=== PATIENT | female | born 1995 | race Two or more races ===

== ENCOUNTER 2022-06-22 18:54 | Emergency (ER) | payer OTHER ==
[~2022-06-22] VITALS: Ht 162.6 cm; Wt 86.4 kg
[2022-06-22] MEDS ORDERED: MULT-1203 PO (19:15)
[2022-06-22] MEDS ORDERED: BACLOFEN 10 MG TABLET PO ONE (19:30)
[2022-06-22] MEDS ORDERED: IBUPROFEN 600 MG TABLET PO ONE (19:30)
[2022-06-22] MEDS ORDERED: LIDOCAINE 5% TRANSDERMAL PATCH TD ONE (19:30)
[2022-06-22] MEDS ORDERED: IBUP-1492 PO (21:02)
[2022-06-22] MEDS ORDERED: BACL10TA PO (21:04)
[2022-06-22 21:17] VITALS: BP 125/76
== END 2022-06-22 21:17 | disposition home or self-care (01) ==
LOC: EMS 18:58
DX: M25.512 Pain in left shoulder (principal); V49.9XXA Car occupant (driver) (passenger) injured in unspecified traffic accident, initial encounter; Y93.89 Activity, other specified; Y92.89 Other specified places as the place of occurrence of the external cause; Y99.8 Other external cause status
CPT/HCPCS: 99284; 73030-TC; Z7502; Z7610